=== PATIENT | female | born 1935 | race Caucasian/White ===

== ENCOUNTER → 2016-04-23 | Outpatient (CLI) | payer MEDICARE, BC ==
[~2016-04-23] MED LIST: ACIDOPHILUS1 EAC1 PO; ACIDOPHILUS1 EAC3 PO; ALBUTEROL2.5 MG/3 M IH; ALDACTONE 25MG25 M1 PO; ALENDRONATE SOD70 M1 PO; ASPIRIN E.C. 8181 MG PO; ATIVAN 2MG2 MG PO; ATIVAN1 M1 PO; BETAPACE80 M1 PO; BISOPROLOL AND1 TA1 PO; BISOPROLOL PO; CEFPODOXIME PR200 M1 PO; CLOPIDOGREL PO; COBAL1000 MCG/M IM; COLACE100 M1 PO; COREG12.5 M1 PO; COUMADIN 5MG5 MG/TAB PO; COUMADIN PO; COUMADIN3 MG PO; DEMADEX 20MG20 M1 PO; DESYREL 50MG50 MG PO; DIAZEPAM2 MG PO; EPA FISH OIL1000 MG PO; ESCITALOPRAM10 MG PO; FLAXSEED340 GM PO; FLONASE ALLERG9.9 ML NS; FLONASE0.05 MG/AC NS; FOSAMAX 70MG TA70 MG PO; FUROSEMIDE PO; FUROSEMIDE20 MG PO; FUROSEMIDE40 MG/4 ML PO; GOOD SENSE ASPI81 M1 PO; IPRATROPIUM BROM3 M1 IH; K LYTE 25 MEQ25 MEQ PO; K-EFFERVESCENT25 MEQ PO; LASIX 40MG TABL40 MG PO; LASIX40 M1 PO; LEVOFLOXACIN IV; LEXAPRO 10MG10 MG PO; LINSEED OIL 1 ML1 ML; LISINOPRIL10 MG PO; LORAZEPAM1 M1 PO; METOPROLOL SUCC25 M1 PO; MICATIN14 GM TP; MIRALAX17 GM PO; NOVOLOG FLEX100 U/ML SC; PERFOROMIS20 MCG/2 M IH; POLYVINYL ALCOH15 ML OP; PREDNISONE20 M1 PO; PREDNISONE20 MG PO; PULMICORT0.5 MG/2 M IH; ROCEPHIN VIA1 G/VIAL IV; RT ALBUTER2.5 MG/0.5 IH; SIMVASTATIN40 M1 PO; SOTALOL HYDROCH80 MG PO; SPIRIVA18 MCG IH; VALIUM 2MG T2 MG/TAB PO; VIBRAMYCIN HYC100 MG PO; VIBRAMYCIN100 MG PO; VITAMIN B-1000 MCG/T PO; VITAMIN D 400400 IU PO; WARFARIN PO; XARELTO20 MG PO; XYZAL5 MG PO
== END ==
LOC: LAB 11:49
DX: Z51.81 Encounter for therapeutic drug level monitoring (principal); Z79.01 Long term (current) use of anticoagulants

== ENCOUNTER → 2016-04-26 | Outpatient (CLI) | payer MEDICARE, BC | LOC: LAB 11:45 | DX: Z51.81 Encounter for therapeutic drug level monitoring (principal); Z79.01 Long term (current) use of anticoagulants; I35.0 Nonrheumatic aortic (valve) stenosis ==

== ENCOUNTER → 2016-05-03 | Outpatient (CLI) | payer MEDICARE, BC | LOC: LAB 11:31 | DX: Z51.81 Encounter for therapeutic drug level monitoring (principal); Z79.01 Long term (current) use of anticoagulants; I35.0 Nonrheumatic aortic (valve) stenosis ==

== ENCOUNTER → 2016-05-06 | Outpatient (CLI) | payer MEDICARE, BC | LOC: LAB 10:57 | DX: Z51.81 Encounter for therapeutic drug level monitoring (principal); Z79.01 Long term (current) use of anticoagulants; I35.0 Nonrheumatic aortic (valve) stenosis ==

== ENCOUNTER → 2016-05-10 | Outpatient (CLI) | payer MEDICARE, BC | LOC: LAB 11:59 | DX: Z51.81 Encounter for therapeutic drug level monitoring (principal); Z79.01 Long term (current) use of anticoagulants; I35.0 Nonrheumatic aortic (valve) stenosis ==

== ENCOUNTER → 2016-05-14 | Outpatient (CLI) | payer MEDICARE, BC | LOC: LAB 12:26 | DX: Z51.81 Encounter for therapeutic drug level monitoring (principal); I35.0 Nonrheumatic aortic (valve) stenosis ==

== ENCOUNTER → 2016-05-17 | Outpatient (CLI) | payer MEDICARE, BC | LOC: LAB 12:34 | DX: Z51.81 Encounter for therapeutic drug level monitoring (principal); I35.0 Nonrheumatic aortic (valve) stenosis ==

== ENCOUNTER → 2016-05-18 | Outpatient (CLI) | payer MEDICARE, BC | LOC: LAB 14:32 | DX: N30.00 Acute cystitis without hematuria (principal) ==

== ENCOUNTER → 2016-05-20 | Outpatient (CLI) | payer MEDICARE, BC | LOC: LAB 10:00 | DX: Z51.81 Encounter for therapeutic drug level monitoring (principal); Z79.01 Long term (current) use of anticoagulants; I36.0 Nonrheumatic tricuspid (valve) stenosis ==

== ENCOUNTER → 2016-05-24 | Outpatient (CLI) | payer MEDICARE, BC | LOC: LAB 13:17 | DX: I35.0 Nonrheumatic aortic (valve) stenosis (principal); Z51.81 Encounter for therapeutic drug level monitoring ==

== ENCOUNTER → 2016-05-31 | Outpatient (CLI) | payer MEDICARE, BC | LOC: LAB 12:36 | DX: Z51.81 Encounter for therapeutic drug level monitoring (principal); I35.0 Nonrheumatic aortic (valve) stenosis ==

== ENCOUNTER → 2016-06-07 | Outpatient (CLI) | payer MEDICARE, BC | LOC: LAB 11:15 | DX: Z51.81 Encounter for therapeutic drug level monitoring (principal); I35.0 Nonrheumatic aortic (valve) stenosis ==

== ENCOUNTER → 2016-06-15 | Outpatient (CLI) | payer MEDICARE, BC | LOC: LAB 10:53 | DX: Z51.81 Encounter for therapeutic drug level monitoring (principal); Z79.01 Long term (current) use of anticoagulants; I35.0 Nonrheumatic aortic (valve) stenosis ==

== ENCOUNTER → 2016-06-17 | Outpatient (CLI) | payer MEDICARE, BC ==
[2016-04-05 06:25] VITALS: BP 165/74
== END ==
LOC: RAD 13:28
DX: R13.11 Dysphagia, oral phase (principal); R13.12 Dysphagia, oropharyngeal phase

== ENCOUNTER → 2016-06-22 | Outpatient (CLI) | payer MEDICARE, BC | LOC: RAD 16:13 | DX: R06.00 Dyspnea, unspecified (principal); I48.91 Unspecified atrial fibrillation; I50.21 Acute systolic (congestive) heart failure; F07.81 Postconcussional syndrome ==

== ENCOUNTER → 2016-06-25 | Outpatient (CLI) | payer MEDICARE, BC | LOC: LAB 11:22 | DX: Z51.81 Encounter for therapeutic drug level monitoring (principal); Z79.01 Long term (current) use of anticoagulants; I35.0 Nonrheumatic aortic (valve) stenosis; I50.21 Acute systolic (congestive) heart failure; R06.00 Dyspnea, unspecified; F07.81 Postconcussional syndrome ==

== ENCOUNTER 2016-07-01 16:08 | Inpatient (IN) | payer MEDICARE, BC ==
[~2016-07-01 16:08] MED LIST changes: -ACIDOPHILUS1 EAC1 PO; -ACIDOPHILUS1 EAC3 PO; -ASPIRIN E.C. 8181 MG PO; -ATIVAN1 M1 PO; -BETAPACE80 M1 PO; -COUMADIN3 MG PO; -ESCITALOPRAM10 MG PO; -FLAXSEED340 GM PO; -FLONASE ALLERG9.9 ML NS; -K LYTE 25 MEQ25 MEQ PO; -K-EFFERVESCENT25 MEQ PO; -LASIX40 M1 PO; -LORAZEPAM1 M1 PO; -VITAMIN B-1000 MCG/T PO; -XARELTO20 MG PO; -XYZAL5 MG PO
[2016-07-01] MEDS ORDERED: K LYTE 25 MEQ25 MEQ PO (16:16)
[2016-07-01] MEDS ORDERED: COUMADIN3 MG PO (16:17)
[2016-07-01] MEDS ORDERED: ACIDOPHILUS1 EAC3 PO (16:17)
[2016-07-01] MEDS ORDERED: COLACE100 M1 PO (16:18)
[2016-07-01] MEDS ORDERED: ACIDOPHILUS1 EAC1 PO (16:18)
[2016-07-01] MEDS ORDERED: ATIVAN1 M1 PO (16:19)
[2016-07-01] MEDS ORDERED: LORAZEPAM1 M1 PO (16:19)
--- NOTE | 2016-07-01 16:20 | NUR ---
Patient admitted from the clinic. Taken to room 204 via wheelchair. Oxygen saturation 100% on oxygen at 3 liters via nasal cannula. Patient is alert and oriented x3. Denies pain or shortness of breath. Reports that she fell on 06/13/16, states that she believes that all of her problems are related to that fall. Patient states that her reason for admission today is "to run some tests." Patient does not describe in detail the symptoms that she is having. As radiology staff enters room to take patient for chest x-ray, patient states "I probably need to call my son Khoa and tell him I'm here or he is going to be worried." Offered to call patient's son Khoa for her while she was getting the chest x-ray. Patient states "what are you going to tell him, I was going to lie to him, the truth is I'm actually seeing things, I saw two little girls last night." Patient then describes in detail multiple hallucinations that she has been having since yesterday. Patient also reports "not being able to figure my thoughts out right." Khoa (son/DPOA) contacted by Isabella De Souza RN and updated on patient status. Fariba Almaguer locked patient's car and returned the car keys to the patient. Patient appears anxious, has scattered thoughts and is intermittently forgetful. Patient oriented to room, call light, bed controls, and fall precautions. Patient verbalizes understanding and denies questions or needs at this time. Fall precautions in place.
[2016-07-01 16:52] VITALS: BP 149/66
[2016-07-01 16:54] VITALS: BP 149/66
--- NOTE | 2016-07-01 17:15 | NUR ---
Patient's son Khoa is at bedside. Mental status is unchanged and at baseline per Khoa (son/DPOA). Khoa reports patient's portable oxygen canister not properly working intermittently since Tuesday. Khoa also states he believes that issue has been resolved.
[2016-07-01 18:24] VITALS: BP 133/49
[2016-07-01 18:30] VITALS: BP 133/49
[2016-07-01] MEDS ORDERED: LASIX40 M1 PO (18:43)
--- NOTE | 2016-07-01 19:00 | NUR ---
Report received from Fariba Rivera RN
[2016-07-01] MEDS ORDERED: ASPIRIN E.C. 8181 MG PO (19:11)
[2016-07-01] MEDS ORDERED: DESYREL 50MG50 MG PO (19:14)
[2016-07-01] MEDS ORDERED: ALBUTEROL2.5 MG/3 M IH (19:16)
[2016-07-01] MEDS ORDERED: PULMICORT0.5 MG/2 M IH (19:17)
[2016-07-01] MEDS ORDERED: PERFOROMIS20 MCG/2 M IH (19:18)
[2016-07-01] MEDS ORDERED: FOSAMAX 70MG TA70 MG PO (19:20)
[2016-07-01] MEDS ORDERED: LEXAPRO 10MG10 MG PO (19:21)
[2016-07-01] MEDS ORDERED: BETAPACE80 M1 PO (19:24)
[2016-07-01] MEDS ORDERED: FLONASE ALLERG9.9 ML NS (19:25)
[2016-07-01] MEDS ORDERED: COUMADIN PO (19:27)
--- NOTE | 2016-07-01 20:00 | NUR ---
Resting in bed, awake, a/o x 3. Pt denies having any recent episodes of hullucinations. Answers all questions correctly. See shift assessment. States left side of neck and shoulder is slightly sore.
--- NOTE | 2016-07-01 21:56 | NUR ---
Pt Sa02 95% on 2L/NC. Pulse 78, Respirations 20 and even. Lung sounds have fine crackles in upper and lower lobes on expirations. Oxygen on at 2L/NC.
--- NOTE | 2016-07-01 22:59 | NUR ---
Pt c/o of back of neck being sore. Rated 5 out of 10. Requested tylenol. Jerri Oneil APRN notified, order received for PRN tylenol. Pupils equal and reactive to light. Size 2. Equal sales ledger clerk in hand bilateral. Equal strength in upper and lower legs. A/o to date, time and place. Pt Able to recall previous conversation that her and I have had.
--- NOTE | 2016-07-01 23:11 | NUR ---
Pt ambulated to the bathroom room with one person minimal assist at 2230. Gait steady.
--- NOTE | 2016-07-01 23:12 | NUR ---
Pt ate 100% of snack. Given chocolate pudding and gram crackers.
[2016-07-01 23:28] VITALS: BP 148/52
--- NOTE | 2016-07-02 01:22 | NUR ---
Q hourly checks done. Resting in bed, eyes closed even none labored respirations. Pt where C-pap. Applied at 2300.
[2016-07-02 02:59] VITALS: BP 141/72
--- NOTE | 2016-07-02 03:14 | NUR ---
Q hourly checks done. Bed alarm on. Pt awake, a/o x 3. No c/o of pain, SOB. No reports of hallucinations. Pt ambulated to bathroom with minimal assistances from TANKER SERVICEMAN, gait steady. Bed alarm set once pt returned to bed.
--- NOTE | 2016-07-02 05:44 | NUR ---
Resting in bed, awake, a/o x 3. Denies pain or SOB. Answers all questions appropriately. Denies having any hallucinations. Alert and oriented to date, time and place. SCD's on. Oxygen on at 2L/NC. Wearing C-Pap.
--- NOTE | 2016-07-02 06:28 | NUR ---
Q hourly checks done. SCD's on, oxygen on 2L/NC. Bed alarm set. Pt resting in bed with eyes closed. Even none labored respirations. Pt wearing C-Pap.
[2016-07-02 06:29] VITALS: BP 125/53
--- NOTE | 2016-07-02 07:18 | NUR ---
Report given to Starla Pedro RN
--- NOTE | 2016-07-02 07:20 | NUR ---
report received from artemio lewis
--- NOTE | 2016-07-02 08:00 | NUR ---
PATIENT LYING IN BED. SHIFT ASSESSMENT COMPLETE. PATIENT ALERT AND ORIENTED TO PERSON,PLACE, AGE, AND . ON OXYGEN VIA NASAL CANNULA AT 2L. REPORTS HAVING SHORTNESS OF BREATH UPON EXERTION. REPORTS THAT SHE HAS HAD INCREASED DIFFICULTY WITH BREATHING SINCE HER FALL BUT THERE HAS NOT RECENTLY NOTICED ANY CHANGE. DENIES HAVING COUGH. IV TO LEFT AC. SMALL AMOUNT OF BLOOD UNDER DRESSING SURROUNDING IV INSERTION SITE. IV INSERTION SITE HAS SMALL PURPLE COLORED HEMATOMA PRESENT. IV FLUSHES WITHOUT DIFFICULTY OR PAIN AND GETS BLOOD RETURN. REPORTS HAVING A COUPLE OF INCIDENTS WHERE SHE HAD HALLUCINATIONS LASTNIGHT.
[2016-07-02 11:27] VITALS: BP 124/54
--- NOTE | 2016-07-02 14:00 | NUR ---
Report from Tierney Pedro RN. No changes from shift assessment this AM.
[2016-07-02 15:32] VITALS: BP 145/65
--- NOTE | 2016-07-02 16:00 | NUR ---
Hortensia Cordero APRN at bedside. No new orders.
--- NOTE | 2016-07-02 16:40 | NUR ---
Dr. Cuellar at bedside to discuss lasix, low sodium diet, and plan of care. All questions answered. Possible discharge tomorrow.
[2016-07-02 18:28] VITALS: BP 145/58
--- NOTE | 2016-07-02 19:00 | NUR ---
ASSESSMENT COMPLETE. PT ALERT AND ORIENTED AT THIS TIME. PT DENIES ANY HALLUCINATIONS AT THIS TIME. ALSO DENIES PAIN. PT AWARE SHE IS A FALL RISK. BED OR CHAIR ALARM ON WHEN APPROPRIATE. IV TO LAC WITH SOME OLD BLOOD AROUND CATH SITE FROM START BUT OTHERWISE WNL. PT DENIES ANY OTHER NEEDS AT THIS TIME. WILL CONT TO MONITOR.
[2016-07-02 22:46] VITALS: BP 134/60
[2016-07-03] VITALS (7 sets, daily range): BP systolic 126–161; BP diastolic 51–76
--- NOTE | 2016-07-03 06:37 | NUR ---
END OF SHIFT NOTE: PT APPEARED TO HAVE SLEPT WELL THROUGHOUT THE NIGHT. MEDICATED ONCE WITH TYLENOL FOR HEADACHE. PT DID NOT EXPRESS HALLUCINATING TO NURSE. DENIED ANY HALLUCINATIONS EARLIER IN THE SHIFT. PT IS A FALL RISK. BED ALARM WAS ON THROUGHOUT THE NIGHT.
--- NOTE | 2016-07-03 07:16 | NUR ---
Report given to ERIC Lee.
--- NOTE | 2016-07-03 07:34 | NUR ---
Report received from Jay Ferreira RN and care assumed. Pt resting in bed with eyes closed and no signs of distress or discomfort noted. IV fluids infusing at 125 mL/hr. Call light in reach.
--- NOTE | 2016-07-03 08:20 | NUR ---
Pt states that she is having some head "fullness" around the forehead. States it feels like a headache. Offered pt tylenol per PRN orders, and pt agreeable to it. Pt states that she didn't sleep well last night and feels that may be part of why she is having the headache today. Pt alert and oriented with gait steady. Conversation appropriate.
--- NOTE | 2016-07-03 11:10 | NUR ---
Dr. Cuellar in talking with pt at this time.
--- NOTE | 2016-07-03 12:45 | NUR ---
Pt ambulates in halls with oxygen on at 2 L/min via nasal canula. Oxygen saturation 89% during ambulation. Pt does not appear to be short of breath and is able to carry on a conversation while ambulating.
--- NOTE | 2016-07-03 16:15 | NUR ---
Pt states that neck feels much less stiff after use of the heating pad. States she can move her head without as much pain and stiffness as before. Pt to chair, call light in reach, chair alarm on.
--- NOTE | 2016-07-03 19:12 | NUR ---
Pt ambulates in james with oxygen at 2 L/min via nasal canula and oxygen is at 91% during ambulation. Pt resting in bed, call light in reach, bed alarm on. Report given to Samy Tovar LPN.
--- NOTE | 2016-07-03 19:29 | NUR ---
Report received from Rosa REYES. Patient resting supine in bed with bed alarm on. Oxygen in place at 2 L/NC. Assisted up to BR and voids 300 ML of pale, clear urine. Rates pain, to neck 2/10. Has heat pad to neck and doing neck stretches and exercises. Assessment completed. Lungs sound CTA at this time. Neuro checks WNL. Denies hallucinations or seeing things that aren't really there. States had cough this AM, none noted now. No pedal edema. Bed alarm on. Call light in reach.
--- NOTE | 2016-07-03 22:09 | NUR ---
CPAP applied. Refused SCD's. PRN Tylenol given with HS medications for neck pain. Bed alarm on. Call light in reach.
--- NOTE | 2016-07-04 00:07 | NUR ---
Rests with eyes closed. CPAP in place. No signs of pain or distress. Bed alarm on. Call light in reach.
--- NOTE | 2016-07-04 01:17 | NUR ---
Up to BR with assist. Voids 200 ML of clear yellow urine. Assisted back to bed. Bed alarm on. Call light in reach.
[2016-07-04 03:00] VITALS: BP 145/64
--- NOTE | 2016-07-04 03:50 | NUR ---
Rests with eyes closed. No signs of pain or distress. Up to BR PRN. Bed alarm on. Call light in reach.
--- NOTE | 2016-07-04 06:18 | NUR ---
Up to BR with assist. Voids 400 ML of clear yellow urine. Assisted back to bed. Bed alarm on. Call light in reach. CPAP on.
[2016-07-04 06:20] VITALS: BP 167/79
--- NOTE | 2016-07-04 07:04 | NUR ---
Report to Sherice REYES
--- NOTE | 2016-07-04 10:29 | NUR ---
Pt up in chair at this time. States she has some pain in her neck and back. Lungs CTA, Bowel sounds present, Heart sounds regular. No edema noted. Pt denies any other needs at this time. Will continue to monitor.
[2016-07-04 10:51] VITALS: BP 121/56
[2016-07-04 15:00] VITALS: BP 121/58
--- NOTE | 2016-07-04 15:43 | NUR ---
Pt up to side of bed for lunch. States sitting on the side of the be is not as painful as sitting in the chair. Pt eats lunch and then goes back to bed. Son in to visit her. Pt request removal of heating pad, states she's getting hot enough in bed. Rates pain at a 2/10. No other needs noted at this time. Will continue to monitor. Call light in reach.
[2016-07-04 18:16] VITALS: BP 135/65
--- NOTE | 2016-07-04 19:12 | NUR ---
Report received from Sherice REYES. Patient sitting in recliner with chair alarm on. A/O x4. Rates pain to base of neck 05/28. K-pad applied Q 1 hour while awake per order with stretches. Neuro-checks WNL. Denies visual or auditory hallucinations today. Oxygen in place at 2L/NC. Reports that she had not ambulated in halls today. BATH TESTER instructed to do so now. Reports that since she has not been seen by Dr. Cuellar yet today or discharged as she had planned she would rather wait until AM now to go home. Call placed to Dr. Cuellar's cell phone to update on INR results drawn today, patients overall status and fact she would rather go home in AM vs tonight if he decides to discharge home. No answer. Message left to call hospital. Up ambulating in james with BATH TESTER, gaitbelt and walker. Oxygen at 2L. Ambulated with 1 assist to X-ray and back. SAO2 89% with ambulation. Recovered to 92% quickly when back to room. Assisted back to recliner with chair alarm on.
--- NOTE | 2016-07-04 19:31 | NUR ---
Dr. Cuellar in house to see patient.
[2016-07-04 23:48] VITALS: BP 153/62
--- NOTE | 2016-07-05 00:15 | NUR ---
Rests with eyes closed. No signs of pain or distress. Bed alarm on. Call light in reach.
[2016-07-05 03:03] VITALS: BP 134/65
--- NOTE | 2016-07-05 06:26 | NUR ---
Rested well all shift. Up PRN to BR. No request in night for PRN analgesic. Wt. up this AM 0.2 lbs from yesterday. 1.5 lbs from admission. Wore CPAP all night. No visiual or auditory hallucinations. Bed alarm on. Call light in reach.
[2016-07-05 06:30] VITALS: BP 145/73
--- NOTE | 2016-07-05 07:51 | NUR ---
Report to Fariba REYES
--- NOTE | 2016-07-05 08:03 | NUR ---
Dr. Cuellar at bedside.
--- NOTE | 2016-07-05 08:10 | NUR ---
Patient alert and oriented. Sitting up in recliner. Denies pain at this time, states "no, not while I'm just sitting here." Offered k-pad, patient refused, states she doesn't think the k-pad has been working. Oxygen on at 2 liters via nasal cannula. Telemetry leads intact. INT to left ac flushes without difficulty. Patient denies dizziness or shortness of breath. Denies needs or questions at this time. Fall precautions in place.
[2016-07-05 11:11] VITALS: BP 116/65
[2016-07-05] MEDS ORDERED: COUMADIN PO (13:03)
[2016-07-05] MEDS ORDERED: DESYREL 50MG50 MG PO (13:04)
[2016-07-05 15:17] VITALS: BP 138/82
--- NOTE | 2016-07-05 15:27 | NUR ---
Pt is being discharged to home. Her Home O2 issues have been resolved per her son. She is comfortable w/ going home at this time, and she refuses HH services as she would like to get started w/ Cardiac Rehab, for which she has an appointment on 07-08-16. Discuss w/ both she and her son Henrry alternate living situations such as [facility]. Pt states that her has called her to come and [facility] a [facility] the [facility], but she states that she is just not ready to go to a [facility]. We discuss the possibility of her being capable of joining her in and [facility] apartment, Henrry is not sure his father would do well in [facility], but they will discuss this further w/ Padmini and see what would work out for both. Pt and son ask that her name be placed on the [facility] waiting list, and this is done - she is #10 on the waiting list. In the meantime family will meet w/ Padmini, Adm for [facility] and begin to make plans for this when there is availabilit. Pt was very agreeable.
--- NOTE | 2016-07-05 15:28 | NUR ---
Patient alert and oriented. Denies pain. Patient discharged to home. Henrry (son) at bedside to drive patient home. Discharge instructions provided to patient and son. Patient verbalizes understanding and denies questions. Coumadin education print out shredded per patient request, states she has copies of them at home and does not need another. Cardiac rehab appointment scheduled for 07/08/16 @1300. Follow up appointment with Dr. Cuellar scheduled for 07/12/16 @ 1330. Patient out of facility via wheelchair to POV without incident. Oxygen at 2 liters via patient's own portable oxygen.
== END 2016-07-05 15:28 | disposition home or self-care (01) | DRG 291 ==
LOC: MED/SURG 16:08
PROVIDERS: ADMIT Nurse Practitioner Family
DX: I50.23 Acute on chronic systolic (congestive) heart failure (principal); G92 Toxic encephalopathy; Z66 Do not resuscitate; R09.02 Hypoxemia; J43.9 Emphysema, unspecified; I48.91 Unspecified atrial fibrillation; R53.1 Weakness; R13.10 Dysphagia, unspecified; E03.9 Hypothyroidism, unspecified; F41.1 Generalized anxiety disorder; G47.33 Obstructive sleep apnea (adult) (pediatric); F32.9 Major depressive disorder, single episode, unspecified; T43.215A Adverse effect of selective serotonin and norepinephrine reuptake inhibitors, initial encounter; Z79.01 Long term (current) use of anticoagulants; Z95.2 Presence of prosthetic heart valve; Z87.891 Personal history of nicotine dependence; Z87.01 Personal history of pneumonia (recurrent)
CPT/HCPCS: J1650; J1940

== ENCOUNTER → 2016-07-01 | Outpatient (CLI) | payer MEDICARE, BC | LOC: LAB 13:42 | DX: Z51.81 Encounter for therapeutic drug level monitoring (principal); Z79.01 Long term (current) use of anticoagulants; I50.21 Acute systolic (congestive) heart failure ==

== ENCOUNTER 2016-07-08 12:52 | Outpatient (RCR) | payer MEDICARE, BC ==
[~2016-07-08 12:52] MED LIST changes: -ESCITALOPRAM10 MG PO; -FLAXSEED340 GM PO; -K-EFFERVESCENT25 MEQ PO; -VITAMIN B-1000 MCG/T PO; -XARELTO20 MG PO; -XYZAL5 MG PO
== END 2016-10-06 | disposition home or self-care (01) ==
LOC: CARDREHAB → CARDLAB 12:52 → CARDREHAB 12:52
DX: Z48.812 Encounter for surgical aftercare following surgery on the circulatory system (principal); Z95.2 Presence of prosthetic heart valve

== ENCOUNTER → 2016-07-08 | Outpatient (CLI) | payer MEDICARE, BC ==
[~2016-07-08] MED LIST changes: +ACIDOPHILUS1 EAC1 PO; +ACIDOPHILUS1 EAC3 PO; +ASPIRIN E.C. 8181 MG PO; +ATIVAN1 M1 PO; +BETAPACE80 M1 PO; +COUMADIN3 MG PO; +ESCITALOPRAM10 MG PO; +FLAXSEED340 GM PO; +FLONASE ALLERG9.9 ML NS; +K LYTE 25 MEQ25 MEQ PO; +K-EFFERVESCENT25 MEQ PO; +LASIX40 M1 PO; +LORAZEPAM1 M1 PO; +VITAMIN B-1000 MCG/T PO; +XARELTO20 MG PO; +XYZAL5 MG PO
== END ==
LOC: LAB 12:31
DX: Z51.81 Encounter for therapeutic drug level monitoring (principal); Z79.01 Long term (current) use of anticoagulants; I35.0 Nonrheumatic aortic (valve) stenosis

== ENCOUNTER → 2016-07-15 | Outpatient (CLI) | payer MEDICARE, BC ==
[~2016-07-15] MED LIST changes: +ESCITALOPRAM10 MG PO; +FLAXSEED340 GM PO; +K-EFFERVESCENT25 MEQ PO; +VITAMIN B-1000 MCG/T PO; +XARELTO20 MG PO; +XYZAL5 MG PO
== END ==
LOC: LAB 11:03
DX: Z51.81 Encounter for therapeutic drug level monitoring (principal); Z79.01 Long term (current) use of anticoagulants; I35.0 Nonrheumatic aortic (valve) stenosis

== ENCOUNTER → 2016-07-20 | Outpatient (CLI) | payer MEDICARE, BC | LOC: LAB 11:08 | DX: Z51.81 Encounter for therapeutic drug level monitoring (principal); Z79.01 Long term (current) use of anticoagulants; I35.0 Nonrheumatic aortic (valve) stenosis ==

== ENCOUNTER → 2016-07-29 | Outpatient (CLI) | payer MEDICARE, BC ==
[2016-07-05 15:17] VITALS: BP 138/82
== END ==
LOC: LAB 09:44
DX: Z51.81 Encounter for therapeutic drug level monitoring (principal); Z79.01 Long term (current) use of anticoagulants; I35.0 Nonrheumatic aortic (valve) stenosis

== ENCOUNTER → 2016-08-12 | Outpatient (CLI) | payer MEDICARE, BC | LOC: LAB 07-23 13:42 | DX: Z51.81 Encounter for therapeutic drug level monitoring (principal); Z79.01 Long term (current) use of anticoagulants; I50.21 Acute systolic (congestive) heart failure ==

== ENCOUNTER → 2016-08-16 | Outpatient (CLI) | payer MEDICARE, BC | LOC: LAB 12:01 | DX: Z51.81 Encounter for therapeutic drug level monitoring (principal); Z79.01 Long term (current) use of anticoagulants; I35.0 Nonrheumatic aortic (valve) stenosis ==

== ENCOUNTER → 2016-08-23 | Outpatient (CLI) | payer MEDICARE, BC | LOC: LAB 11:19 | DX: R06.00 Dyspnea, unspecified (principal); I50.21 Acute systolic (congestive) heart failure; F07.81 Postconcussional syndrome; K92.1 Melena; Z51.81 Encounter for therapeutic drug level monitoring; Z79.01 Long term (current) use of anticoagulants; I35.0 Nonrheumatic aortic (valve) stenosis ==

== ENCOUNTER → 2016-08-30 | Outpatient (CLI) | payer MEDICARE, BC | LOC: LAB 13:37 | DX: Z51.81 Encounter for therapeutic drug level monitoring (principal); Z79.01 Long term (current) use of anticoagulants; I35.0 Nonrheumatic aortic (valve) stenosis; E78.2 Mixed hyperlipidemia ==

== ENCOUNTER → 2016-09-06 | Outpatient (CLI) | payer MEDICARE, BC | LOC: LAB 14:09 | DX: I35.0 Nonrheumatic aortic (valve) stenosis (principal); Z51.81 Encounter for therapeutic drug level monitoring; Z79.01 Long term (current) use of anticoagulants ==

== ENCOUNTER → 2016-09-14 | Outpatient (CLI) | payer MEDICARE, BC | LOC: LAB 11:44 | DX: Z51.81 Encounter for therapeutic drug level monitoring (principal); Z79.01 Long term (current) use of anticoagulants; I35.0 Nonrheumatic aortic (valve) stenosis ==

== ENCOUNTER → 2016-09-20 | Outpatient (CLI) | payer MEDICARE, BC | LOC: LAB 13:40 | DX: Z51.81 Encounter for therapeutic drug level monitoring (principal); Z79.01 Long term (current) use of anticoagulants; I35.0 Nonrheumatic aortic (valve) stenosis ==

== ENCOUNTER → 2016-09-23 | Outpatient (CLI) | payer MEDICARE, BC | LOC: LAB 11:10 | DX: Z51.81 Encounter for therapeutic drug level monitoring (principal); Z79.01 Long term (current) use of anticoagulants; I35.0 Nonrheumatic aortic (valve) stenosis ==

== ENCOUNTER → 2016-09-30 | Outpatient (CLI) | payer MEDICARE, BC | LOC: LAB 14:59 | DX: Z51.81 Encounter for therapeutic drug level monitoring (principal); Z79.01 Long term (current) use of anticoagulants; I35.0 Nonrheumatic aortic (valve) stenosis; E78.2 Mixed hyperlipidemia ==

== ENCOUNTER 2016-10-07 10:00 | Outpatient (RCR) | payer MEDICARE, BC ==
[~2016-10-07 10:00] MED LIST changes: -ESCITALOPRAM10 MG PO; -FLAXSEED340 GM PO; -K-EFFERVESCENT25 MEQ PO; -VITAMIN B-1000 MCG/T PO; -XARELTO20 MG PO; -XYZAL5 MG PO
[2016-11-30] MEDS ORDERED: XARELTO20 MG PO (10:16)
[2016-11-30] MEDS ORDERED: SIMVASTATIN40 M1 PO (10:43)
[2016-11-30] MEDS ORDERED: XYZAL5 MG PO (10:45)
[2016-11-30] MEDS ORDERED: ESCITALOPRAM10 MG PO (10:47)
[2016-11-30] MEDS ORDERED: VITAMIN B-1000 MCG/T PO (10:48)
[2016-11-30] MEDS ORDERED: MIRALAX17 GM PO (10:49)
[2016-11-30] MEDS ORDERED: BETAPACE80 M1 PO (10:50)
[2016-11-30] MEDS ORDERED: FLAXSEED340 GM PO (10:51)
[2016-11-30] MEDS ORDERED: IPRATROPIUM BROM3 M1 IH (10:52)
[2016-11-30] MEDS ORDERED: K-EFFERVESCENT25 MEQ PO (10:53)
[2016-11-30 13:17] VITALS: BP 130/64
== END 2017-01-05 | disposition home or self-care (01) ==
LOC: CARDREHAB
DX: Z48.812 Encounter for surgical aftercare following surgery on the circulatory system (principal); Z95.2 Presence of prosthetic heart valve

== ENCOUNTER → 2016-11-11 | Outpatient (CLI) | payer MEDICARE, BC ==
[~2016-11-11] MED LIST changes: +ESCITALOPRAM10 MG PO; +FLAXSEED340 GM PO; +K-EFFERVESCENT25 MEQ PO; +VITAMIN B-1000 MCG/T PO; +XARELTO20 MG PO; +XYZAL5 MG PO
== END ==
LOC: LAB 15:40
DX: I48.0 Paroxysmal atrial fibrillation (principal); I50.21 Acute systolic (congestive) heart failure; M85.80 Other specified disorders of bone density and structure, unspecified site; E53.8 Deficiency of other specified B group vitamins

== ENCOUNTER → 2016-11-17 | Outpatient (CLI) | payer MEDICARE, BC | LOC: RAD 12:00 → VAS 16:07 | DX: I48.0 Paroxysmal atrial fibrillation (principal); I50.21 Acute systolic (congestive) heart failure; I35.0 Nonrheumatic aortic (valve) stenosis; I34.0 Nonrheumatic mitral (valve) insufficiency; I47.1 Supraventricular tachycardia ==

== ENCOUNTER → 2016-11-23 | Outpatient (CLI) | payer MEDICARE, BC | LOC: MAMMO 09:34 | DX: Z12.31 Encounter for screening mammogram for malignant neoplasm of breast (principal) | CPT/HCPCS: G0202 ==

== ENCOUNTER → 2016-11-25 | Outpatient (CLI) | payer MEDICARE, BC | LOC: LAB 14:01 | DX: I50.21 Acute systolic (congestive) heart failure (principal); I35.0 Nonrheumatic aortic (valve) stenosis; Z51.81 Encounter for therapeutic drug level monitoring; Z79.01 Long term (current) use of anticoagulants ==

== ENCOUNTER 2016-11-30 10:07 | Emergency (ER) | payer MEDICARE, BC ==
[~2016-11-30] VITALS: Ht 160 cm; Wt 69.1 kg
[~2016-11-30 10:07] MED LIST changes: -ESCITALOPRAM10 MG PO; -FLAXSEED340 GM PO; -K-EFFERVESCENT25 MEQ PO; -VITAMIN B-1000 MCG/T PO; -XARELTO20 MG PO; -XYZAL5 MG PO
[2016-11-30] MEDS ORDERED: XARELTO20 MG PO (10:16)
[2016-11-30] MEDS ORDERED: SIMVASTATIN40 M1 PO (10:43)
[2016-11-30] MEDS ORDERED: XYZAL5 MG PO (10:45)
[2016-11-30] MEDS ORDERED: ESCITALOPRAM10 MG PO (10:47)
[2016-11-30] MEDS ORDERED: VITAMIN B-1000 MCG/T PO (10:48)
[2016-11-30] MEDS ORDERED: MIRALAX17 GM PO (10:49)
[2016-11-30] MEDS ORDERED: BETAPACE80 M1 PO (10:50)
[2016-11-30] MEDS ORDERED: FLAXSEED340 GM PO (10:51)
[2016-11-30] MEDS ORDERED: IPRATROPIUM BROM3 M1 IH (10:52)
[2016-11-30] MEDS ORDERED: K-EFFERVESCENT25 MEQ PO (10:53)
[2016-11-30 13:17] VITALS: BP 130/64
== END 2016-11-30 13:17 | disposition home or self-care (01) ==
LOC: ED 10:07
DX: I50.20 Unspecified systolic (congestive) heart failure (principal); J43.9 Emphysema, unspecified; I25.10 Atherosclerotic heart disease of native coronary artery without angina pectoris; Z87.891 Personal history of nicotine dependence; Z95.0 Presence of cardiac pacemaker; I48.91 Unspecified atrial fibrillation; Z79.01 Long term (current) use of anticoagulants; Z95.2 Presence of prosthetic heart valve; F32.9 Major depressive disorder, single episode, unspecified; F41.9 Anxiety disorder, unspecified

== ENCOUNTER → 2017-03-16 | Outpatient (CLI) | payer MEDICARE, BC ==
[~2017-03-16] MED LIST changes: +DESYREL 100MG100 MG PO; +ESCITALOPRAM10 MG PO; +FLAXSEED340 GM PO; +FUROSEMIDE40 MG PO; +K-EFFERVESCENT25 MEQ PO; +POTA20PKT PO; +VITAMIN B-1000 MCG/T PO; +XARELTO20 MG PO; +XYZAL5 MG PO
[2017-03-16 12:09] LABS: EOS # 0.1 (0.04-0.40); EOS % 1.9 % (1.0-5.0); HEMATOCRIT 38.1 % (37.0-47.0); HEMOGLOBIN 11.9 g/dL (12.5-16.0); LYMPH# 1.1 (1.50-4.00); MEAN CELL VOLUME 100 fl (78-100); MEAN CORPUSCULAR HEMOGLOBIN 31 pg (27-31); MEAN CORPUSCULAR HGB CONC 31 g/dL (33-37); MEAN PLATELET VOLUME 10.2 fl (7.4-10.4); MONO # 0.7 (0.20-0.80); NEU # 4.5 (1.40-6.50); PLATELET COUNT 186 K/mm3 (130-400); RED BLOOD COUNT 3.83 M/mm3 (4.10-5.30); WHITE BLOOD COUNT 6.3 K/mm3 (4.8-10.8)
[2017-03-16 12:23] LABS: ALBUMIN 4.1 g/dL (3.5-5.0); BUN/CREATININE RATIO 24.4 (6.0-26.0); CALCIUM 9.8 mg/dL (8.4-10.2); POTASSIUM 4.2 mmol/L (3.6-5.0); TOTAL BILIRUBIN 0.8 mg/dL (0.2-1.3); TOTAL PROTEIN 7.7 g/dL (6.3-8.2)
[2017-03-16 12:59] LABS: URINE APPEARANCE CLEAR; URINE BILIRUBIN NEGATIVE (NEGATIVE); URINE BLOOD NEGATIVE (NEGATIVE); URINE COLOR YELLOW; URINE GLUCOSE NEGATIVE (NEGATIVE); URINE KETONE NEGATIVE (NEGATIVE); URINE LEUKOCYTE ESTERASE NEGATIVE (NEGATIVE); URINE NITRATE NEGATIVE (NEGATIVE); URINE PROTEIN(semi-quant) NEGATIVE (NEGATIVE); URINE UROBILINOGEN NORMAL (NORMAL); URINE WBC 0-1 /hpf (0-3)
== END ==
LOC: LAB 11:43 → RAD 11:43
PROVIDERS: Nurse Practitioner Primary Care
DX: R29.898 Other symptoms and signs involving the musculoskeletal system (principal); Z88.1 Allergy status to other antibiotic agents; Z88.0 Allergy status to penicillin; Z88.2 Allergy status to sulfonamides; Z88.8 Allergy status to other drugs, medicaments and biological substances

== ENCOUNTER 2017-03-30 16:19 | Observation (INO) | payer MEDICARE, BC ==
[~2017-03-30] VITALS: Ht 160 cm; Wt 66.4 kg
[~2017-03-30 16:19] MED LIST changes: -DESYREL 100MG100 MG PO; -FUROSEMIDE40 MG PO; -POTA20PKT PO
[2017-03-30 17:20] VITALS: BP 187/91
[2017-03-30] MEDS ORDERED: ATIVAN1 M1 PO (17:26)
[2017-03-30] MEDS ORDERED: XARELTO20 MG PO (17:26)
[2017-03-30] MEDS ORDERED: POTA20PKT PO (17:29)
[2017-03-30] MEDS ORDERED: FLONASE ALLERG9.9 ML NS (17:31)
[2017-03-30] MEDS ORDERED: ESCITALOPRAM10 MG PO (17:31)
[2017-03-30] MEDS ORDERED: DESYREL 100MG100 MG PO (17:31)
[2017-03-30] MEDS ORDERED: BETAPACE80 M1 PO (17:32)
[2017-03-30] MEDS ORDERED: IPRATROPIUM BROM3 M1 IH (17:33)
[2017-03-30 18:45] VITALS: BP 163/85
[2017-03-30 20:08] LABS: PH-URINE 6.5 (5.0 - 8.0); URINE APPEARANCE CLEAR; URINE BILIRUBIN NEGATIVE (NEGATIVE); URINE BLOOD NEGATIVE (NEGATIVE); URINE COLOR YELLOW; URINE GLUCOSE NEGATIVE (NEGATIVE); URINE KETONE NEGATIVE (NEGATIVE); URINE NITRATE NEGATIVE (NEGATIVE); URINE PROTEIN(semi-quant) TRACE mg/dL (NEGATIVE); URINE UROBILINOGEN NORMAL (NORMAL)
[2017-03-30 20:09] LABS: URINE LEUKOCYTE ESTERASE TRACE (NEGATIVE)
[2017-03-30 22:42] VITALS: BP 123/61
[2017-03-31 03:10] VITALS: BP 170/82
[2017-03-31 06:21] VITALS: BP 158/72
[2017-03-31 11:16] VITALS: BP 121/61
[2017-03-31 15:01] VITALS: BP 159/81
[2017-03-31] MEDS ORDERED: FUROSEMIDE40 MG PO (16:09)
[2017-03-31 18:17] VITALS: BP 126/69
== END 2017-03-31 18:00 | disposition home or self-care (01) ==
LOC: MED/SURG 16:19
PROVIDERS: ADMIT Nurse Practitioner Primary Care
DX: I11.0 Hypertensive heart disease with heart failure (principal); I50.30 Unspecified diastolic (congestive) heart failure; R09.02 Hypoxemia; Z95.2 Presence of prosthetic heart valve; G47.33 Obstructive sleep apnea (adult) (pediatric); Z99.81 Dependence on supplemental oxygen; I48.91 Unspecified atrial fibrillation; F41.9 Anxiety disorder, unspecified; Z87.01 Personal history of pneumonia (recurrent); Z88.0 Allergy status to penicillin; Z88.2 Allergy status to sulfonamides; Z88.7 Allergy status to serum and vaccine; Z79.01 Long term (current) use of anticoagulants; Z79.82 Long term (current) use of aspirin
CPT/HCPCS: G0378; G0379

== ENCOUNTER → 2017-03-30 | Outpatient (CLI) | payer MEDICARE, BC ==
[2017-03-30 15:37] LABS: EOS # 0.1 (0.04-0.40); EOS % 1.9 % (1.0-5.0); HEMATOCRIT 34.3 % (37.0-47.0); HEMOGLOBIN 10.7 g/dL (12.5-16.0); LYMPH# 0.9 (1.50-4.00); MEAN CELL VOLUME 99 fl (78-100); MEAN CORPUSCULAR HEMOGLOBIN 31 pg (27-31); MEAN CORPUSCULAR HGB CONC 31 g/dL (33-37); MEAN PLATELET VOLUME 10.1 fl (7.4-10.4); MONO # 0.7 (0.20-0.80); NEU # 5.1 (1.40-6.50); PLATELET COUNT 168 K/mm3 (130-400); RED BLOOD COUNT 3.45 M/mm3 (4.10-5.30); RED CELL DISTRIBUTION WIDTH 12.5 % (11.5-14.5); WHITE BLOOD COUNT 6.8 K/mm3 (4.8-10.8)
[2017-03-30 15:47] LABS: ALBUMIN 3.8 g/dL (3.5-5.0); BUN/CREATININE RATIO 22.9 (6.0-26.0); CALCIUM 9.6 mg/dL (8.4-10.2); POTASSIUM 4.4 mmol/L (3.6-5.0); TOTAL BILIRUBIN 0.7 mg/dL (0.2-1.3); TOTAL PROTEIN 7.1 g/dL (6.3-8.2)
[2017-03-30 16:07] LABS: TROPONIN-I < 0.03 ng/mL (0.00-0.06)
== END ==
LOC: RAD 15:17
PROVIDERS: Nurse Practitioner Primary Care
DX: R06.02 Shortness of breath (principal); Z95.0 Presence of cardiac pacemaker

== ENCOUNTER → 2017-04-08 | Outpatient (CLI) | payer MEDICARE, BC ==
[2017-03-31 18:17] VITALS: BP 126/69
[~2017-04-08] MED LIST changes: +DESYREL 100MG100 MG PO; +FUROSEMIDE40 MG PO; +POTA20PKT PO
[2017-04-08 13:19] LABS: BUN/CREATININE RATIO 24.8 (6.0-26.0); CALCIUM 9.6 mg/dL (8.4-10.2); POTASSIUM 5.2 mmol/L (3.6-5.0)
== END ==
LOC: LAB 12:47
PROVIDERS: Internal Medicine
DX: I48.0 Paroxysmal atrial fibrillation (principal)

== ENCOUNTER → 2017-05-10 | Outpatient (CLI) | payer MEDICARE, BC ==
[2017-05-10 08:59] LABS: BUN/CREATININE RATIO 18.2 (6.0-26.0); CALCIUM 9.6 mg/dL (8.4-10.2)
== END ==
LOC: LAB 08:18
PROVIDERS: Internal Medicine
DX: I50.21 Acute systolic (congestive) heart failure (principal)

== ENCOUNTER → 2017-06-30 | Outpatient (CLI) | payer MEDICARE, BC ==
[2017-06-30 13:47] LABS: CALCIUM 9.6 mg/dL (8.4-10.2); GLUCOSE 85 mg/dL (65-105); POTASSIUM 4.1 mmol/L (3.6-5.0); SODIUM 143 mmol/L (137-145)
[2017-06-30 13:55] LABS: CARBON DIOXIDE > 40 mmol/L (22-30)
== END ==
LOC: LAB 13:08
PROVIDERS: Internal Medicine
DX: I50.21 Acute systolic (congestive) heart failure (principal)

== ENCOUNTER 2017-07-31 06:48 | Emergency (ER) | payer MEDICARE, BC ==
[~2017-07-31] VITALS: Wt 69.8 kg
[2017-07-31] MEDS ORDERED: LOSARTAN POTASS50 M1 PEG (07:06)
[2017-07-31 07:26] LABS: HEMATOCRIT 35.5 % (37.0-47.0); HEMOGLOBIN 10.7 g/dL (12.5-16.0); MEAN CELL VOLUME 100 fl (78-100); MEAN CORPUSCULAR HEMOGLOBIN 30 pg (27-31); MEAN CORPUSCULAR HGB CONC 30 g/dL (33-37); MEAN PLATELET VOLUME 10.3 fl (7.4-10.4); PLATELET COUNT 204 K/mm3 (130-400); RED BLOOD COUNT 3.55 M/mm3 (4.10-5.30); RED CELL DISTRIBUTION WIDTH 12.9 % (11.5-14.5); WHITE BLOOD COUNT 4.7 K/mm3 (4.8-10.8)
[2017-07-31 07:41] LABS: ALBUMIN 3.6 g/dL (3.5-5.0); ALT/SGPT 28 U/L (9-52); AST-SGOT 30 U/L (14-36); BUN/CREATININE RATIO 25.7 (6.0-26.0); CALCIUM 9.2 mg/dL (8.4-10.2); GLUCOSE 96 mg/dL (65-105); POTASSIUM 3.7 mmol/L (3.6-5.0); SODIUM 142 mmol/L (137-145); TOTAL BILIRUBIN 0.3 mg/dL (0.2-1.3); TOTAL PROTEIN 7.1 g/dL (6.3-8.2)
[2017-07-31 07:43] LABS: CARBON DIOXIDE > 40 mmol/L (22-30)
[2017-07-31 08:01] LABS: BAND 0 % (0-10); LYMPHOCYTE 20 % (20-51); MONOCYTE 10 % (3-10); NEUTROPHILS 66 % (42-75)
[2017-07-31] MEDS ORDERED: ATIVAN1 M1 PO (08:22)
[2017-07-31] MEDS ORDERED: OSTERA TABLET1 EACH PO (08:23)
[2017-07-31] MEDS ORDERED: XARELTO20 MG PO (08:26)
[2017-07-31] MEDS ORDERED: XYZAL5 MG PO (08:26)
[2017-07-31] MEDS ORDERED: MECLIZINE PO (09:25)
[2017-07-31 09:39] VITALS: BP 170/80
== END 2017-07-31 09:35 | disposition home or self-care (01) ==
LOC: ED 06:48
PROVIDERS: Nurse Practitioner Primary Care
DX: R42 Dizziness and giddiness (principal); I10 Essential (primary) hypertension; I48.91 Unspecified atrial fibrillation; Z79.82 Long term (current) use of aspirin; J44.9 Chronic obstructive pulmonary disease, unspecified; Z87.891 Personal history of nicotine dependence; I50.20 Unspecified systolic (congestive) heart failure; Z95.0 Presence of cardiac pacemaker; Z95.2 Presence of prosthetic heart valve; Z79.01 Long term (current) use of anticoagulants

== ENCOUNTER 2017-09-08 16:27 | Emergency (ER) | payer MEDICARE, BC ==
[~2017-09-08] VITALS: Wt 69.8 kg
[~2017-09-08 16:27] MED LIST changes: -BUDESONIDE0.25 MG/2 IH; -CYANOCOBAL1000 MCG/1 IM
[2017-09-08] MEDS ORDERED: BUDESONIDE0.25 MG/2 IH (17:39)
[2017-09-08] MEDS ORDERED: CYANOCOBAL1000 MCG/1 IM (17:40)
[2017-09-08 18:35] VITALS: BP 166/65
== END 2017-09-08 18:30 | disposition short-term general hospital (02) ==
LOC: ED 16:27
DX: I50.9 Heart failure, unspecified (principal); I48.91 Unspecified atrial fibrillation; E78.5 Hyperlipidemia, unspecified; Z87.891 Personal history of nicotine dependence; Z95.2 Presence of prosthetic heart valve; G47.33 Obstructive sleep apnea (adult) (pediatric); J43.9 Emphysema, unspecified; Z95.0 Presence of cardiac pacemaker
CPT/HCPCS: J1940

== ENCOUNTER → 2017-09-08 | Outpatient (CLI) | payer MEDICARE, BC ==
[~2017-09-08] MED LIST changes: +BUDESONIDE0.25 MG/2 IH; +CYANOCOBAL1000 MCG/1 IM; +LOSARTAN POTASS50 M1 PEG; +MECLIZINE PO; +OSTERA TABLET1 EACH PO
[2017-09-08 14:48] LABS: EOS % 0.4 % (1.0-5.0); HEMATOCRIT 38.7 % (37.0-47.0); LYMPH# 1.1 (1.50-4.00); MEAN CELL VOLUME 105 fl (78-100); MEAN CORPUSCULAR HEMOGLOBIN 30 pg (27-31); MEAN PLATELET VOLUME 10.8 fl (7.4-10.4); MONO # 0.7 (0.20-0.80); NEU # 5.9 (1.40-6.50); PLATELET COUNT 191 K/mm3 (130-400); RED CELL DISTRIBUTION WIDTH 13.5 % (11.5-14.5); WHITE BLOOD COUNT 7.7 K/mm3 (4.8-10.8)
[2017-09-08 14:54] LABS: MEAN CORPUSCULAR HGB CONC 28 g/dL (33-37)
[2017-09-08 15:27] LABS: BUN/CREATININE RATIO 28.6 (6.0-26.0); CALCIUM 9.7 mg/dL (8.4-10.2); GLUCOSE 112 mg/dL (65-105); POTASSIUM 4.7 mmol/L (3.6-5.0); SODIUM 143 mmol/L (137-145)
[2017-09-08 16:03] LABS: CARBON DIOXIDE > 40 mmol/L (22-30)
[2017-09-08 18:00] LABS: TROPONIN-I 0.12 ng/mL (0.00-0.06)
== END ==
LOC: RAD 14:23
PROVIDERS: Nurse Practitioner Family
DX: R06.02 Shortness of breath (principal); R09.02 Hypoxemia; J44.9 Chronic obstructive pulmonary disease, unspecified; R30.0 Dysuria

== ENCOUNTER → 2017-09-23 | Outpatient (CLI) | payer MEDICARE, BC ==
[2017-09-08 18:35] VITALS: BP 166/65
[~2017-09-23] MED LIST changes: +BUDESONIDE0.25 MG/2 IH; +CYANOCOBAL1000 MCG/1 IM
[2017-09-23 15:07] LABS: BUN/CREATININE RATIO 15.7 (6.0-26.0); TOTAL BILIRUBIN 0.4 mg/dL (0.2-1.3); TOTAL PROTEIN 7.9 g/dL (6.3-8.2)
[2017-09-23 15:21] LABS: EOS # 0.1 (0.04-0.40); HEMATOCRIT 37.8 % (37.0-47.0); HEMOGLOBIN 11.7 g/dL (12.5-16.0); LYMPH# 1.1 (1.50-4.00); MEAN CELL VOLUME 98 fl (78-100); MEAN CORPUSCULAR HEMOGLOBIN 30 pg (27-31); MEAN CORPUSCULAR HGB CONC 31 g/dL (33-37); MEAN PLATELET VOLUME 10.3 fl (7.4-10.4); MONO # 0.8 (0.20-0.80); NEU # 4.8 (1.40-6.50); PLATELET COUNT 247 K/mm3 (130-400); RED BLOOD COUNT 3.85 M/mm3 (4.10-5.30); RED CELL DISTRIBUTION WIDTH 13.7 % (11.5-14.5); WHITE BLOOD COUNT 6.9 K/mm3 (4.8-10.8)
== END ==
LOC: LAB 14:25
PROVIDERS: Internal Medicine
DX: J43.1 Panlobular emphysema (principal); G47.33 Obstructive sleep apnea (adult) (pediatric); I48.91 Unspecified atrial fibrillation

== ENCOUNTER 2017-10-31 12:03 | Emergency (ER) | payer MEDICARE, BC ==
[2017-10-31] MEDS ORDERED: ASPIR LOW81 MG PO (12:15)
[2017-10-31] MEDS ORDERED: FUROSEMIDE40 MG (12:16)
[2017-10-31] MEDS ORDERED: LORAZEPAM1 M1 PO (12:17)
[2017-10-31] MEDS ORDERED: POLYOX95% (12:18)
[2017-10-31] MEDS ORDERED: RT SPIRIVA INH18 MCG IH (12:19)
[2017-10-31 12:30] LABS: EOS # 0.1 (0.04-0.40); EOS % 1.4 % (1.0-5.0); HEMATOCRIT 35.3 % (37.0-47.0); HEMOGLOBIN 10.6 g/dL (12.5-16.0); MEAN CELL VOLUME 98 fl (78-100); MEAN CORPUSCULAR HEMOGLOBIN 30 pg (27-31); MEAN CORPUSCULAR HGB CONC 30 g/dL (33-37); MEAN PLATELET VOLUME 10.3 fl (7.4-10.4); MONO # 0.7 (0.20-0.80); NEU # 4.1 (1.40-6.50); PLATELET COUNT 258 K/mm3 (130-400); RED BLOOD COUNT 3.59 M/mm3 (4.10-5.30); RED CELL DISTRIBUTION WIDTH 13.8 % (11.5-14.5); WHITE BLOOD COUNT 5.8 K/mm3 (4.8-10.8)
[2017-10-31 12:49] LABS: ALBUMIN 3.7 g/dL (3.5-5.0); ALT/SGPT 30 U/L (9-52); AST-SGOT 41 U/L (14-36); BUN/CREATININE RATIO 18.8 (6.0-26.0); CALCIUM 8.9 mg/dL (8.4-10.2); CARBON DIOXIDE 38 mmol/L (22-30); GLUCOSE 131 mg/dL (65-105); POTASSIUM 3.6 mmol/L (3.6-5.0); SODIUM 139 mmol/L (137-145); TOTAL BILIRUBIN 0.6 mg/dL (0.2-1.3); TOTAL PROTEIN 7.4 g/dL (6.3-8.2)
[2017-10-31 12:51] LABS: TROPONIN-I 0.03 ng/mL (0.00-0.06)
[2017-10-31 12:54] LABS: CKMB ISOENZYME 1.4 ng/mL (0.6-3.5)
[2017-10-31 14:21] VITALS: BP 153/78
== END 2017-10-31 14:19 | disposition home or self-care (01) ==
LOC: ED 12:03
PROVIDERS: Nurse Practitioner Primary Care
DX: I11.0 Hypertensive heart disease with heart failure (principal); I50.9 Heart failure, unspecified; I25.10 Atherosclerotic heart disease of native coronary artery without angina pectoris; I48.91 Unspecified atrial fibrillation; I25.2 Old myocardial infarction; J44.9 Chronic obstructive pulmonary disease, unspecified; Z79.82 Long term (current) use of aspirin; Z79.899 Other long term (current) drug therapy

== ENCOUNTER → 2017-12-01 | Outpatient (CLI) | payer MEDICARE, BC ==
[~2017-12-01] MED LIST changes: +ASPIR LOW81 MG PO; +FUROSEMIDE40 MG; +POLYOX95%; +RT SPIRIVA INH18 MCG IH
[2017-12-01 10:50] LABS: BUN/CREATININE RATIO 19.5 (6.0-26.0); CALCIUM 9.3 mg/dL (8.4-10.2); POTASSIUM 3.5 mmol/L (3.6-5.0)
== END ==
LOC: LAB 10:11
PROVIDERS: Internal Medicine
DX: I50.21 Acute systolic (congestive) heart failure (principal); J43.1 Panlobular emphysema; G47.30 Sleep apnea, unspecified; I48.91 Unspecified atrial fibrillation

== ENCOUNTER → 2017-12-28 | Outpatient (CLI) | payer MEDICARE, BC ==
[2017-12-28 09:56] LABS: ALBUMIN 4.2 g/dL (3.5-5.0); CALCIUM 9.6 mg/dL (8.4-10.2); POTASSIUM 4.4 mmol/L (3.6-5.0); TOTAL BILIRUBIN 0.8 mg/dL (0.2-1.3); TOTAL PROTEIN 7.7 g/dL (6.3-8.2)
[2017-12-28 10:04] LABS: EOS # 0.1 (0.04-0.40); EOS % 1.7 % (1.0-5.0); HEMATOCRIT 34.5 % (37.0-47.0); HEMOGLOBIN 10.2 g/dL (12.5-16.0); LYMPH# 0.8 (1.50-4.00); MEAN CELL VOLUME 95 fl (78-100); MEAN CORPUSCULAR HEMOGLOBIN 28 pg (27-31); MEAN CORPUSCULAR HGB CONC 30 g/dL (33-37); MEAN PLATELET VOLUME 10.6 fl (7.4-10.4); MONO # 0.7 (0.20-0.80); NEU # 4.7 (1.40-6.50); PLATELET COUNT 271 K/mm3 (130-400); RED BLOOD COUNT 3.63 M/mm3 (4.10-5.30); RED CELL DISTRIBUTION WIDTH 14.7 % (11.5-14.5); WHITE BLOOD COUNT 6.3 K/mm3 (4.8-10.8)
== END ==
LOC: RAD 09:26 → MAMMO 10:00
PROVIDERS: Internal Medicine
DX: M85.80 Other specified disorders of bone density and structure, unspecified site (principal); I50.21 Acute systolic (congestive) heart failure; I48.91 Unspecified atrial fibrillation; J43.1 Panlobular emphysema; G47.30 Sleep apnea, unspecified

== ENCOUNTER 2018-06-22 14:00 | Emergency (ER) | payer MEDICARE, BC ==
[~2018-06-22 14:00] MED LIST changes: -FUROSEMIDE40 MG
[2018-06-22 14:40] LABS: HEMATOCRIT 32.1 % (37.0-47.0); HEMOGLOBIN 9.5 g/dL (12.5-16.0); MEAN CELL VOLUME 101 fl (78-100); MEAN CORPUSCULAR HEMOGLOBIN 30 pg (27-31); MEAN CORPUSCULAR HGB CONC 30 g/dL (33-37); MEAN PLATELET VOLUME 10.3 fl (7.4-10.4); PLATELET COUNT 206 K/mm3 (130-400); RED BLOOD COUNT 3.19 M/mm3 (4.10-5.30); RED CELL DISTRIBUTION WIDTH 13.5 % (11.5-14.5); WHITE BLOOD COUNT 5.7 K/mm3 (4.8-10.8)
[2018-06-22] MEDS ORDERED: EFFER-K 25 MEQ25 MEQ PO (14:59)
[2018-06-22] MEDS ORDERED: BETAPACE120 M1 PO (15:01)
[2018-06-22] MEDS ORDERED: XARELTO15 MG PO (15:02)
[2018-06-22 15:03] LABS: ALBUMIN 3.6 g/dL (3.5-5.0); ALT/SGPT 38 U/L (9-52); AST-SGOT 53 U/L (14-36); CALCIUM 8.7 mg/dL (8.4-10.2); GLUCOSE 141 mg/dL (65-105); POTASSIUM 5.3 mmol/L (3.6-5.0); SODIUM 129 mmol/L (137-145); TOTAL BILIRUBIN 0.3 mg/dL (0.2-1.3); TOTAL PROTEIN 6.8 g/dL (6.3-8.2)
[2018-06-22 15:15] LABS: TROPONIN-I < 0.03 ng/mL (0.00-0.06)
[2018-06-22 15:23] LABS: CARBON DIOXIDE > 40 mmol/L (22-30)
[2018-06-22 15:47] LABS: BAND 3 % (0-10); LYMPHOCYTE 14 % (20-51); MONOCYTE 17 % (3-10); NEUTROPHILS 66 % (42-75)
[2018-06-22 15:48] LABS: HYPOCHROMIA 2+
[2018-06-22] MEDS ORDERED: SOTALOL HCL AF80 MG PO (18:10)
[2018-06-22] MEDS ORDERED: DESYREL50 MG PO (18:11)
[2018-06-22 18:29] VITALS: BP 156/71
[2018-06-23] MEDS ORDERED: MIRALAX17 GM PO (08:47)
== END 2018-06-22 17:29 | disposition other institution (70) ==
LOC: ED 14:00
PROVIDERS: Nurse Practitioner
DX: I50.21 Acute systolic (congestive) heart failure (principal); R09.02 Hypoxemia; F32.9 Major depressive disorder, single episode, unspecified; F41.9 Anxiety disorder, unspecified; I11.0 Hypertensive heart disease with heart failure; I48.91 Unspecified atrial fibrillation; I25.10 Atherosclerotic heart disease of native coronary artery without angina pectoris; I25.2 Old myocardial infarction; J44.9 Chronic obstructive pulmonary disease, unspecified; E78.5 Hyperlipidemia, unspecified; Z79.51 Long term (current) use of inhaled steroids; Z90.710 Acquired absence of both cervix and uterus; Z95.0 Presence of cardiac pacemaker

== ENCOUNTER 2018-06-26 11:27 | Inpatient (IN) | payer MEDICARE, BC ==
[~2018-06-26] VITALS: Ht 160 cm; Wt 72.8 kg
[~2018-06-26 11:27] MED LIST changes: +BETAPACE120 M1 PO; +DESYREL50 MG PO; +EFFER-K 25 MEQ25 MEQ PO; +SOTALOL HCL AF80 MG PO; +XARELTO15 MG PO
[2018-06-26 13:42] VITALS: BP 143/71
[2018-06-26 18:24] VITALS: BP 155/71
[2018-06-26 19:15] LABS: URINE APPEARANCE HAZY; URINE BILIRUBIN NEGATIVE (NEGATIVE); URINE BLOOD NEGATIVE (NEGATIVE); URINE COLOR YELLOW; URINE GLUCOSE NEGATIVE (NEGATIVE); URINE KETONE NEGATIVE (NEGATIVE); URINE LEUKOCYTE ESTERASE TRACE (NEGATIVE); URINE NITRATE NEGATIVE (NEGATIVE); URINE PROTEIN(semi-quant) TRACE mg/dL (NEGATIVE); URINE UROBILINOGEN NORMAL (NORMAL)
[2018-06-26 19:16] LABS: URINE WBC 0-1 /hpf (0-3)
[2018-06-27 06:18] VITALS: BP 160/76
[2018-06-27 19:01] VITALS: BP 123/72
[2018-06-28 06:26] VITALS: BP 154/82
[2018-06-28 19:14] VITALS: BP 133/54
[2018-06-29 06:23] VITALS: BP 157/81
[2018-06-29 18:29] VITALS: BP 172/70
[2018-06-30 06:23] VITALS: BP 153/80
[2018-06-30 19:17] VITALS: BP 171/75
[2018-07-01 06:11] VITALS: BP 157/72
[2018-07-01 19:20] VITALS: BP 146/74
[2018-07-02 06:36] VITALS: BP 147/75
[2018-07-02 18:21] VITALS: BP 100/57
[2018-07-03 05:39] VITALS: BP 146/76
[2018-07-03 07:08] LABS: HEMATOCRIT 32.4 % (37.0-47.0); HEMOGLOBIN 9.7 g/dL (12.5-16.0); MEAN CELL VOLUME 99 fl (78-100); MEAN CORPUSCULAR HEMOGLOBIN 30 pg (27-31); MEAN CORPUSCULAR HGB CONC 30 g/dL (33-37); MEAN PLATELET VOLUME 10.2 fl (7.4-10.4); PLATELET COUNT 208 K/mm3 (130-400); RED BLOOD COUNT 3.27 M/mm3 (4.10-5.30); RED CELL DISTRIBUTION WIDTH 13.2 % (11.5-14.5); WHITE BLOOD COUNT 4.6 K/mm3 (4.8-10.8)
[2018-07-03 07:24] LABS: ALBUMIN 3.6 g/dL (3.5-5.0); CALCIUM 9.4 mg/dL (8.4-10.2); POTASSIUM 4.8 mmol/L (3.6-5.0); TOTAL BILIRUBIN 0.3 mg/dL (0.2-1.3); TOTAL PROTEIN 7.1 g/dL (6.3-8.2)
[2018-07-03 07:46] LABS: LYMPHOCYTE 22 % (20-51); MONOCYTE 11 % (3-10); NEUTROPHILS 65 % (42-75)
[2018-07-03 07:47] LABS: OVALOCYTES 1+
[2018-07-03 18:31] VITALS: BP 158/67
[2018-07-04 05:54] VITALS: BP 166/73
[2018-07-04 16:32] VITALS: BP 146/78
[2018-07-05 06:04] VITALS: BP 128/66
[2018-07-05 15:09] VITALS: BP 146/78
[2018-07-05 18:20] VITALS: BP 136/76
[2018-07-06 06:18] VITALS: BP 136/73
[2018-07-06] MEDS ORDERED: IPRATROPIUM BROM3 M1 IH (13:20)
[2018-07-06] MEDS ORDERED: FUROSEMIDE20 MG PO (13:21)
== END 2018-07-06 13:45 | DRG 947 ==
LOC: MED/SURG 11:27
PROVIDERS: ADMIT Internal Medicine
DX: R53.81 Other malaise (principal); I50.23 Acute on chronic systolic (congestive) heart failure; I11.0 Hypertensive heart disease with heart failure; I48.91 Unspecified atrial fibrillation; J44.9 Chronic obstructive pulmonary disease, unspecified; Z79.01 Long term (current) use of anticoagulants; Z95.2 Presence of prosthetic heart valve; Z95.0 Presence of cardiac pacemaker; E53.8 Deficiency of other specified B group vitamins; F32.9 Major depressive disorder, single episode, unspecified; F41.1 Generalized anxiety disorder

== ENCOUNTER → 2018-07-18 | Outpatient (CLI) | payer MEDICARE, BC ==
[2018-07-06 06:18] VITALS: BP 136/73
[2018-07-18 11:59] LABS: EOS # 0.1 (0.04-0.40); EOS % 1.9 % (1.0-5.0); HEMATOCRIT 38.7 % (37.0-47.0); HEMOGLOBIN 11.9 g/dL (12.5-16.0); LYMPH# 0.9 (1.50-4.00); MEAN CELL VOLUME 98 fl (78-100); MEAN CORPUSCULAR HEMOGLOBIN 30 pg (27-31); MEAN CORPUSCULAR HGB CONC 31 g/dL (33-37); MEAN PLATELET VOLUME 10.2 fl (7.4-10.4); MONO # 0.8 (0.20-0.80); PLATELET COUNT 291 K/mm3 (130-400); RED BLOOD COUNT 3.97 M/mm3 (4.10-5.30); RED CELL DISTRIBUTION WIDTH 13.4 % (11.5-14.5); WHITE BLOOD COUNT 6.9 K/mm3 (4.8-10.8)
[2018-07-18 12:07] LABS: ALBUMIN 4.5 g/dL (3.5-5.0); CALCIUM 9.9 mg/dL (8.4-10.2); POTASSIUM 4.4 mmol/L (3.6-5.0); TOTAL BILIRUBIN 0.4 mg/dL (0.2-1.3); TOTAL PROTEIN 8.6 g/dL (6.3-8.2)
== END ==
LOC: LAB 11:32
PROVIDERS: Internal Medicine
DX: I50.21 Acute systolic (congestive) heart failure (principal); I48.91 Unspecified atrial fibrillation

== ENCOUNTER → 2018-08-08 | Outpatient (CLI) | payer MEDICARE, BC ==
[2018-08-01 03:48] VITALS: BP 118/48
[~2018-08-08] MED LIST changes: +ARTIFICIAL TEA1 EACH OP; +IMODIUM A-D2 M3 PO; +LASIX20 M1 PO; +ULTRAM50 M1 PO; +ZOFRAN ODT4 MG PO
[2018-08-08 16:17] LABS: EOS # 0.1 (0.04-0.40); EOS % 1.8 % (1.0-5.0); HEMATOCRIT 39.4 % (37.0-47.0); MEAN CELL VOLUME 97 fl (78-100); MEAN CORPUSCULAR HEMOGLOBIN 30 pg (27-31); MEAN CORPUSCULAR HGB CONC 31 g/dL (33-37); MEAN PLATELET VOLUME 10.2 fl (7.4-10.4); MONO # 0.7 (0.20-0.80); NEU # 4.4 (1.40-6.50); PLATELET COUNT 302 K/mm3 (130-400); RED BLOOD COUNT 4.05 M/mm3 (4.10-5.30); RED CELL DISTRIBUTION WIDTH 13.3 % (11.5-14.5); WHITE BLOOD COUNT 6.2 K/mm3 (4.8-10.8)
[2018-08-08 16:22] LABS: ALBUMIN 4.2 g/dL (3.5-5.0); CALCIUM 9.8 mg/dL (8.4-10.2); POTASSIUM 5.1 mmol/L (3.6-5.0); TOTAL BILIRUBIN 0.6 mg/dL (0.2-1.3)
== END ==
LOC: LAB 15:36
PROVIDERS: Internal Medicine
DX: I50.21 Acute systolic (congestive) heart failure (principal); I48.91 Unspecified atrial fibrillation

== ENCOUNTER 2018-08-09 20:59 | Observation (INO) | payer MEDICARE, BC ==
[~2018-08-09] VITALS: Ht 160 cm; Wt 71.6 kg
[~2018-08-09 20:59] MED LIST changes: -ARTIFICIAL TEA1 EACH OP; -LASIX20 M1 PO; -ULTRAM50 M1 PO
[2018-08-09 21:31] LABS: HEMATOCRIT 32.6 % (37.0-47.0); HEMOGLOBIN 10.1 g/dL (12.5-16.0); MEAN CELL VOLUME 95 fl (78-100); MEAN CORPUSCULAR HEMOGLOBIN 29 pg (27-31); MEAN CORPUSCULAR HGB CONC 31 g/dL (33-37); MEAN PLATELET VOLUME 9.9 fl (7.4-10.4); PLATELET COUNT 237 K/mm3 (130-400); RED BLOOD COUNT 3.43 M/mm3 (4.10-5.30); RED CELL DISTRIBUTION WIDTH 12.9 % (11.5-14.5); WHITE BLOOD COUNT 6.5 K/mm3 (4.8-10.8)
[2018-08-09] MEDS ORDERED: LASIX20 M1 PO (21:37)
[2018-08-09 21:39] LABS: CALCIUM 8.7 mg/dL (8.4-10.2); POTASSIUM 4.6 mmol/L (3.6-5.0)
[2018-08-09] MEDS ORDERED: ARTIFICIAL TEA1 EACH OP (21:41)
[2018-08-09 21:43] LABS: D-DIMER 0.78 mg/L FEU (0.15-0.50); LYMPHOCYTE 19 % (20-51); MONOCYTE 12 % (3-10); NEUTROPHILS 67 % (42-75)
[2018-08-09 22:24] VITALS: BP 149/77
[2018-08-09 23:00] VITALS: BP 140/68
[2018-08-09 23:01] VITALS: BP 140/68
[2018-08-10 00:14] LABS: URINE APPEARANCE CLEAR; URINE COLOR YELLOW
[2018-08-10 00:15] LABS: URINE BILIRUBIN NEGATIVE (NEGATIVE); URINE BLOOD NEGATIVE (NEGATIVE); URINE GLUCOSE NEGATIVE (NEGATIVE); URINE KETONE NEGATIVE (NEGATIVE); URINE LEUKOCYTE ESTERASE NEGATIVE (NEGATIVE); URINE NITRATE NEGATIVE (NEGATIVE); URINE PROTEIN(semi-quant) TRACE mg/dL (NEGATIVE); URINE UROBILINOGEN NORMAL (NORMAL); URINE WBC 0-1 /hpf (0-3)
[2018-08-10 02:48] VITALS: BP 126/73
[2018-08-10 06:16] VITALS: BP 132/69
[2018-08-10 07:03] LABS: CALCIUM 8.7 mg/dL (8.4-10.2); POTASSIUM 4.4 mmol/L (3.6-5.0)
[2018-08-10 10:59] VITALS: BP 125/75
[2018-08-10] MEDS ORDERED: ULTRAM50 M1 PO (13:33)
== END 2018-08-10 14:45 | disposition home or self-care (01) ==
LOC: ED 20:59 → MED/SURG 21:55
PROVIDERS: ADMIT Physician Assistant
DX: E86.0 Dehydration (principal); M79.651 Pain in right thigh; Z79.01 Long term (current) use of anticoagulants; I48.91 Unspecified atrial fibrillation; J44.9 Chronic obstructive pulmonary disease, unspecified; F32.9 Major depressive disorder, single episode, unspecified; E87.6 Hypokalemia; Z90.710 Acquired absence of both cervix and uterus; Z95.2 Presence of prosthetic heart valve; Z79.82 Long term (current) use of aspirin; Z79.51 Long term (current) use of inhaled steroids; Z95.0 Presence of cardiac pacemaker; Z87.891 Personal history of nicotine dependence; Z88.3 Allergy status to other anti-infective agents; Z88.0 Allergy status to penicillin; Z88.7 Allergy status to serum and vaccine; Z88.2 Allergy status to sulfonamides; Z88.1 Allergy status to other antibiotic agents
CPT/HCPCS: G0378; J7030

== ENCOUNTER → 2018-08-15 | Outpatient (CLI) | payer MEDICARE, BC ==
[2018-08-10 10:59] VITALS: BP 125/75
[~2018-08-15] MED LIST changes: +ARTIFICIAL TEA1 EACH OP; +LASIX20 M1 PO; +ULTRAM50 M1 PO
[2018-08-15 11:12] LABS: CALCIUM 9.1 mg/dL (8.4-10.2); POTASSIUM 4.9 mmol/L (3.6-5.0)
== END ==
LOC: LAB 10:37
PROVIDERS: Internal Medicine
DX: I50.21 Acute systolic (congestive) heart failure (principal)

== ENCOUNTER → 2018-10-09 | Outpatient (CLI) | payer MEDICARE, BC ==
[~2018-10-09] VITALS: Ht 160 cm; Wt 71.6 kg
[2018-10-09 10:23] VITALS: BP 163/71
== END ==
LOC: AMSURD 10:03
DX: I48.91 Unspecified atrial fibrillation (principal)

== ENCOUNTER → 2018-10-27 | Outpatient (CLI) | payer MEDICARE, BC ==
[2018-10-09 10:23] VITALS: BP 163/71
[2018-10-27 14:34] LABS: POTASSIUM 4.7 mmol/L (3.5-5.1)
[2018-10-27 14:35] LABS: CALCIUM 9.8 mg/dL (8.3-10.5)
== END ==
LOC: LAB 13:54
PROVIDERS: Internal Medicine
DX: I50.21 Acute systolic (congestive) heart failure (principal)

== ENCOUNTER 2018-12-15 14:30 | Outpatient (RCR) | payer MEDICARE, BC ==
[2018-10-09 10:23] VITALS: BP 163/71
== END 2018-12-15 15:00 | disposition still patient (30) ==
LOC: PT 14:30
DX: S23.3XXA Sprain of ligaments of thoracic spine, initial encounter (principal); M54.2 Cervicalgia

== ENCOUNTER 2019-01-23 11:04 | Emergency (ER) | payer MEDICARE, BC ==
[~2019-01-23] VITALS: Wt 74.5 kg
[~2019-01-23 11:04] MED LIST changes: +PERFOROMIS20 MCG/21 IH
[2019-01-23 11:39] LABS: EOS # 0.1 (0.04-0.40); EOS % 1.3 % (1.0-5.0); HEMATOCRIT 28.9 % (37.0-47.0); HEMOGLOBIN 8.4 g/dL (12.5-16.0); LYMPH# 0.9 (1.50-4.00); MEAN CELL VOLUME 103 fl (78-100); MEAN CORPUSCULAR HEMOGLOBIN 30 pg (27-31); MEAN PLATELET VOLUME 9.8 fl (7.4-10.4); MONO # 0.7 (0.20-0.80); NEU # 4.4 (1.40-6.50); PLATELET COUNT 223 K/mm3 (130-400); RED BLOOD COUNT 2.82 M/mm3 (4.10-5.30); RED CELL DISTRIBUTION WIDTH 13.4 % (11.5-14.5); WHITE BLOOD COUNT 6.1 K/mm3 (4.8-10.8)
[2019-01-23 11:42] LABS: MEAN CORPUSCULAR HGB CONC 29 g/dL (33-37)
[2019-01-23 11:45] LABS: ALBUMIN 3.6 g/dL (3.4-4.8)
[2019-01-23 11:47] LABS: CALCIUM 9.6 mg/dL (8.3-10.5)
[2019-01-23 11:50] LABS: TOTAL BILIRUBIN 0.4 mg/dL (0.2-1.2)
[2019-01-23 11:56] LABS: POTASSIUM 5.8 mmol/L (3.5-5.1)
[2019-01-23] MEDS ORDERED: EFFER-K 25 MEQ25 MEQ PO (12:16)
[2019-01-23] MEDS ORDERED: COZAAR25 M1 PO (12:18)
[2019-01-23 12:19] LABS: MAGNESIUM 1.78 mg/dL (1.60-2.60)
[2019-01-23] MEDS ORDERED: NASACORT A55 MCG/Act NS (12:19)
[2019-01-23] MEDS ORDERED: PAIN RELIEVER500 M2 PO (12:22)
[2019-01-23] MEDS ORDERED: ZYRTEC10 M3 PO (12:23)
[2019-01-23] MEDS ORDERED: BIOFREEZE COLD118 ML TOP (12:23)
[2019-01-23 13:05] VITALS: BP 160/75
== END 2019-01-23 13:05 | disposition home or self-care (01) ==
LOC: ED 11:04
PROVIDERS: Nurse Practitioner Primary Care
DX: K92.2 Gastrointestinal hemorrhage, unspecified (principal); E87.5 Hyperkalemia; I48.91 Unspecified atrial fibrillation; I10 Essential (primary) hypertension; Z79.01 Long term (current) use of anticoagulants; Z79.82 Long term (current) use of aspirin; Z87.19 Personal history of other diseases of the digestive system

== ENCOUNTER → 2019-01-25 | Outpatient (CLI) | payer MEDICARE, BC ==
[2019-01-23 13:05] VITALS: BP 160/75
[~2019-01-25] MED LIST changes: +BIOFREEZE COLD118 ML TOP; +COZAAR25 M1 PO; +NASACORT A55 MCG/Act NS; +PAIN RELIEVER500 M2 PO; +ZYRTEC10 M3 PO
[2019-01-25 10:30] LABS: HEMATOCRIT 29.2 % (37.0-47.0); HEMOGLOBIN 8.6 g/dL (12.5-16.0); MEAN PLATELET VOLUME 9.7 fl (7.4-10.4); RED BLOOD COUNT 2.88 M/mm3 (4.10-5.30); RED CELL DISTRIBUTION WIDTH 13.6 % (11.5-14.5)
[2019-01-25 10:38] LABS: POTASSIUM 4.2 mmol/L (3.5-5.1)
[2019-01-25 10:40] LABS: CALCIUM 9.5 mg/dL (8.3-10.5)
== END ==
LOC: LAB 10:03
PROVIDERS: Internal Medicine
DX: K92.2 Gastrointestinal hemorrhage, unspecified (principal); K92.9 Disease of digestive system, unspecified

== ENCOUNTER → 2019-01-29 | Outpatient (CLI) | payer MEDICARE, BC ==
[2019-01-23 13:05] VITALS: BP 160/75
[2019-01-29 11:08] LABS: EOS # 0.1 (0.04-0.40); EOS % 1.8 % (1.0-5.0); HEMATOCRIT 29.6 % (37.0-47.0); HEMOGLOBIN 8.7 g/dL (12.5-16.0); MEAN CELL VOLUME 100 fl (78-100); MEAN CORPUSCULAR HEMOGLOBIN 29 pg (27-31); MEAN PLATELET VOLUME 10.2 fl (7.4-10.4); MONO # 0.5 (0.20-0.80); NEU # 4.1 (1.40-6.50); PLATELET COUNT 245 K/mm3 (130-400); RED BLOOD COUNT 2.97 M/mm3 (4.10-5.30); RED CELL DISTRIBUTION WIDTH 13.5 % (11.5-14.5); WHITE BLOOD COUNT 5.4 K/mm3 (4.8-10.8)
[2019-01-29 11:13] LABS: ALBUMIN 3.8 g/dL (3.4-4.8); POTASSIUM 3.9 mmol/L (3.5-5.1)
[2019-01-29 11:14] LABS: CALCIUM 9.8 mg/dL (8.3-10.5); LYMPH# 0.7 (1.50-4.00); MEAN CORPUSCULAR HGB CONC 29 g/dL (33-37)
[2019-01-29 11:16] LABS: TOTAL PROTEIN 7.6 g/dL (6.2-8.1)
[2019-01-29 11:17] LABS: TOTAL BILIRUBIN 0.4 mg/dL (0.2-1.2)
== END ==
LOC: LAB 10:22
PROVIDERS: Internal Medicine
DX: I48.91 Unspecified atrial fibrillation (principal); I50.21 Acute systolic (congestive) heart failure

== ENCOUNTER 2019-02-06 13:45 | Emergency (ER) | payer MEDICARE, BC ==
[~2019-02-06] VITALS: Wt 76.7 kg
[2019-02-06 14:28] LABS: EOS # 0.1 (0.04-0.40); HEMATOCRIT 28.9 % (37.0-47.0); HEMOGLOBIN 8.4 g/dL (12.5-16.0); MEAN CELL VOLUME 101 fl (78-100); MEAN CORPUSCULAR HEMOGLOBIN 29 pg (27-31); MEAN PLATELET VOLUME 10.2 fl (7.4-10.4); MONO # 0.7 (0.20-0.80); NEU # 4.5 (1.40-6.50); PLATELET COUNT 263 K/mm3 (130-400); RED BLOOD COUNT 2.87 M/mm3 (4.10-5.30); RED CELL DISTRIBUTION WIDTH 13.7 % (11.5-14.5); WHITE BLOOD COUNT 6.2 K/mm3 (4.8-10.8)
[2019-02-06 14:32] LABS: MEAN CORPUSCULAR HGB CONC 29 g/dL (33-37)
[2019-02-06 14:37] LABS: ALBUMIN 3.6 g/dL (3.4-4.8); POTASSIUM 4.4 mmol/L (3.5-5.1)
[2019-02-06 14:38] LABS: CALCIUM 9.5 mg/dL (8.3-10.5)
[2019-02-06 14:40] LABS: TOTAL PROTEIN 7.5 g/dL (6.2-8.1)
[2019-02-06 14:41] LABS: TOTAL BILIRUBIN 0.3 mg/dL (0.2-1.2)
[2019-02-06 14:52] LABS: TROPONIN-I 0.12 ng/mL (<0.030)
[2019-02-06 15:05] LABS: D-DIMER 1.08 mg/L FEU (0.15-0.50)
[2019-02-06] MEDS ORDERED: FUROSEMIDE20 MG PO (17:12)
[2019-02-06] MEDS ORDERED: LORAZEPAM1 M1 PO (17:13)
[2019-02-06 17:19] LABS: URINE APPEARANCE CLEAR; URINE BILIRUBIN NEGATIVE (NEGATIVE); URINE BLOOD NEGATIVE (NEGATIVE); URINE COLOR YELLOW; URINE GLUCOSE NEGATIVE (NEGATIVE); URINE KETONE NEGATIVE (NEGATIVE); URINE LEUKOCYTE ESTERASE NEGATIVE (NEGATIVE); URINE NITRATE NEGATIVE (NEGATIVE); URINE PROTEIN(semi-quant) 1+ mg/dL (NEGATIVE); URINE UROBILINOGEN NORMAL (NORMAL); URINE WBC 0-1 /hpf (0-3)
[2019-02-06 17:33] VITALS: BP 156/66
== END 2019-02-06 18:11 | disposition short-term general hospital (02) ==
LOC: ED 13:45
PROVIDERS: Nurse Practitioner Family
DX: I11.0 Hypertensive heart disease with heart failure (principal); I50.9 Heart failure, unspecified; E87.2 Acidosis; J44.9 Chronic obstructive pulmonary disease, unspecified; R55 Syncope and collapse; I48.91 Unspecified atrial fibrillation; E78.5 Hyperlipidemia, unspecified; F32.9 Major depressive disorder, single episode, unspecified; F41.9 Anxiety disorder, unspecified; Z90.710 Acquired absence of both cervix and uterus; Z88.2 Allergy status to sulfonamides; Z88.8 Allergy status to other drugs, medicaments and biological substances; Z87.891 Personal history of nicotine dependence; Z95.0 Presence of cardiac pacemaker; Z98.890 Other specified postprocedural states
CPT/HCPCS: J1200; J1940; J2930; J7030; Q9967

== ENCOUNTER 2019-02-08 13:43 | Emergency (ER) | payer MEDICARE, BC | END 2019-02-08 14:50 | disposition E | LOC: ED 13:43 | DX: I46.9 Cardiac arrest, cause unspecified (principal); I11.0 Hypertensive heart disease with heart failure; I50.9 Heart failure, unspecified; I25.10 Atherosclerotic heart disease of native coronary artery without angina pectoris; I48.91 Unspecified atrial fibrillation; J44.9 Chronic obstructive pulmonary disease, unspecified; E78.5 Hyperlipidemia, unspecified; F32.9 Major depressive disorder, single episode, unspecified; G47.33 Obstructive sleep apnea (adult) (pediatric); F41.9 Anxiety disorder, unspecified; Z90.710 Acquired absence of both cervix and uterus; Z90.49 Acquired absence of other specified parts of digestive tract; Z95.2 Presence of prosthetic heart valve; Z95.0 Presence of cardiac pacemaker; Z87.891 Personal history of nicotine dependence; Z79.51 Long term (current) use of inhaled steroids; Z79.82 Long term (current) use of aspirin; Z79.01 Long term (current) use of anticoagulants | CPT/HCPCS: 15967 ==